=== PATIENT | male | born 1980 | race Caucasian/White ===

== ENCOUNTER 2024-09-20 06:27 | Day surgery (SDC) | payer OTHER ==
[2024-09-20] MEDS ORDERED: Bupivacaine 0.5% 50 ML MDV ONE (06:50)
[2024-09-20] MEDS ORDERED: Bupivacaine 0.5%/EPINEPHrine 1:200,000 50 ML MDV ONE (06:50)
[2024-09-20] MEDS: Lactated Ringers 1,000 ML IV SCH (07:05)
[2024-09-20] MEDS ORDERED: Propofol 200 MG/20 ML SDV ONE (07:19)
[2024-09-20] MEDS ORDERED: fentaNYL 100 MCG/2 ML SDV ONE (07:19)
[2024-09-20] MEDS ORDERED: Midazolam 1 MG/ML 2 ML SDV ONE (07:19)
== END 2024-09-20 08:50 | disposition home or self-care (01) ==
LOC: JP.SDS 06:27
PROVIDERS: ATTEND Family Medicine
DX: Z12.11 Encounter for screening for malignant neoplasm of colon (principal); I10 Essential (primary) hypertension; Z91.030 Bee allergy status
CPT/HCPCS: G0121; J2250; J2704; J3010; J7120; 00812-QZ; 45378; J0665; J3490